=== PATIENT | male | born 1980 | race Hispanic/Latino ===

== ENCOUNTER 2019-01-23 15:13 | Outpatient (CLI) | payer OTHER ==
--- NOTE | 2019-01-23 17:28 | CT ---
CT ABDOMEN AND PELVIS NONCONTRAST 01/23/19 HISTORY: Hematuria. Flank pain. FINDINGS: Each renal collecting system, ureter, and urinary bladder are decompressed without stone apparent. Lack of contrast limits evaluation for other abnormalities. No evidence of bowel obstruction. No intr a-abdominal inflammation is apparent. IMPRESSION: No CT evidence of urinary tract obstruction or calcification. No significant abnormalities are demons trated. POS: [facility]
== END 2019-01-23 15:14 | disposition home or self-care (01) ==
LOC: SCSCT 15:13
PROVIDERS: ATTEND Family Medicine
DX: R31.9 Hematuria, unspecified (principal)
CPT/HCPCS: 74176